=== PATIENT | female | born 1955 | race Caucasian/White ===

== ENCOUNTER 2023-12-22 11:10 | Outpatient (CLI) | payer MEDICARE, OTHER | END 2023-12-22 11:11 | disposition home or self-care (01) | LOC: CSHMAMMO 11:10 | PROVIDERS: ATTEND Student in an Organized Health Care Education/Training Program | DX: Z12.31 Encounter for screening mammogram for malignant neoplasm of breast (principal); Z13.820 Encounter for screening for osteoporosis; M81.0 Age-related osteoporosis without current pathological fracture; Z78.0 Asymptomatic menopausal state; Z80.3 Family history of malignant neoplasm of breast | CPT/HCPCS: 77063; 77067; 77080 ==

== ENCOUNTER 2025-06-04 11:59 | Outpatient (CLI) | payer MEDICARE, OTHER | END 2025-06-04 12:00 | disposition home or self-care (01) | LOC: CSHRAD 11:59 | PROVIDERS: ATTEND Family Medicine | DX: J40 Bronchitis, not specified as acute or chronic (principal) | CPT/HCPCS: 71046 ==